=== PATIENT | male | born 1955 | race Caucasian/White ===

== ENCOUNTER 2023-11-17 09:25 | Outpatient (CLI) | payer BC, SELFPAY | END 2023-11-17 09:26 | disposition home or self-care (01) | LOC: AMB 11-21 23:08 | PROVIDERS: PCP Family Medicine; Visit Provider Family Medicine | DX: R07.89 Other chest pain (principal) | CPT/HCPCS: A0425; A0427 ==

== ENCOUNTER 2023-11-17 10:04 | Emergency (ER) | payer BC, SELFPAY ==
[2023-11-17] VITALS (81 sets, daily range): BP systolic 91–122; BP diastolic 66–94; PULSE 71–108; RESP 24; TEMP 36.2; O2SAT 91–95; BMI 30.5
--- NOTE | 2023-11-17 10:07 | CRLHL7_ITS ---
For Patients: As a result of the Century Cures Act, medical imaging exams and procedure reports are released immediately into your electronic medical record. You may view this report before your referring provider. If you have questions, please contact your health care provider. INDICATION: Chest pain. TECHNIQUE: Chest 1 views. COMPARISON: None. FINDINGS: Cardiovasculature and mediastinum: Heart size is normal. Unremarkable mediastinum. Lungs and pleural spaces: Lungs are clear. No sign of infiltrate or mass. No sign of pleural effusion. No pneumothorax. Bones and soft tissues: No significant findings. IMPRESSION: No acute or significant findings. Dictated by Fredis Cummings MD @ 11/17/2023 11:00:14 AM (Electronically Signed)
--- NOTE | 2023-11-17 10:09 | ED_ITS ---
HPI - General Adult General Chief complaint: Chest Pain Stated complaint: chest pain Time Seen by Provider: 11/17/23 10:06 History of Present Illness HPI narrative: Patient is a 68 year white male with hypertension, hypothyroidism, and asthma presents with 4 day history of increasing substernal chest pressure. Patient reports that he was nauseated today had some dry heaves. No pain in his neck or arms. He reports some substernal generalized chest pressure. He was brought in by EMS ambulance. He was given 4 baby aspirin, he is on oxygen. The patient describes some substernal chest pressure. He states it is worse with movement or deep breathing. He denies that it radiates through to his back. He has had no leg swelling edema. He has had no history of coronary artery disease. There is no family history of heart disease. No recent fever, chills, cough. Related Data Home Medications ?Medication ?Instructions ?Recorded ?Confirmed albuterol sulfate 90 mcg/actuation 2 puff inhalation QID PRN wheezing 11/17/23 11/17/23 aerosol inhaler fluoxetine 20 mg capsule 20 mg PO DAILY 11/17/23 11/17/23 fluticasone propionate 50 2 spray intranasal DAILY 11/17/23 11/17/23 mcg/actuation nasal spray,suspension levothyroxine 100 mcg tablet 100 mcg PO QAM 11/17/23 11/17/23 lisinopril 10 mg tablet 10 mg PO DAILY 11/17/23 11/17/23 Allergies Allergy/AdvReac Type Severity Reaction Status Date / Time iodine Allergy Unknown Verified 11/17/23 10:11 Review of Systems Status of ROS: Reports: 10 or more systems reviewed and unremarkable except as noted in History and below PFSH PFS Social History Smoking Status: Never smoker Do you use any of these nicotine containing products: None How often do you have a drink containing alcohol: never How often do you have six or more drinks on one occasion: Never AUDIT-C Alcohol total score: 0 Non-prescribed substance use: denies use Exam Narrative: Exam Narrative: Objective: Patient is slightly pale alert orient x3 HEENT is unremarkable Neck is supple Chest is clear no rales or wheezing Heart rhythm regular 2/6 systolic murmur occasional ectopic beat noted Abdomen benign soft nontender Extremities are no edema neurologic nonfocal Good peripheral perfusion noted, skin periphery warm and dry. Const: Vital Signs, click to edit/add: Vital Signs - 24 hr 11/17/23 10:06 11/17/23 10:06 11/17/23 10:16 Temperature 97.1 F L Pulse Rate Pulse Rate [Pulse Oximeter] 108 H Respiratory Rate 24 Blood Pressure Blood Pressure [Ri ght Upper Arm] 112/90 H Pulse Oximetry 93 94 95 Oxygen Delivery Me thod Room Air Nasal Cannula Oxygen Flow Rate 1 11/17/23 10:25 11/17/23 10:26 11/17/23 10:30 Temperature Pulse Rate 106 H 106 H 107 H Pulse Rate [Pulse Oximeter] Respiratory Rate Blood Pressure 108/89 Blood Pressure [Ri ght Upper Arm] Pulse Oximetry 95 94 93 Oxygen Delivery Me thod Nasal Cannula Nasal Cannula Nasal Cannula Oxygen Flow Rate 1 1 1 11/17/23 10:34 11/17/23 10:41 11/17/23 10:45 Temperature Pulse Rate 103 H 102 H 103 H Pulse Rate [Pulse Oximeter] Respiratory Rate Blood Pressure 99/69 95/78 Blood Pressure [Ri ght Upper Arm] Pulse Oximetry 93 92 91 Oxygen Delivery Me thod Nasal Cannula Nasal Cannula Nasal Cannula Oxygen Flow Rate 1 1 1 11/17/23 10:51 11/17/23 10:56 11/17/23 11:00 Temperature Pulse Rate 102 H 99 98 Pulse Rate [Pulse Oximeter] Respiratory Rate Blood Pressure 102/77 121/76 Blood Pressure [Ri ght Upper Arm] Pulse Oximetry 93 93 95 Oxygen Delivery Me thod Nasal Cannula Nasal Cannula Oxygen Flow Rate 1 1 11/17/23 11:01 11/17/23 11:06 11/17/23 11:11 Temperature Pulse Rate 98 96 96 Pulse Rate [Pulse Oximeter] Respiratory Rate Blood Pressure 102/82 103/82 103/88 Blood Pressure [Ri ght Upper Arm] Pulse Oximetry 94 94 94 Oxygen Delivery Me thod Nasal Cannula Nasal Cannula Nasal Cannula Oxygen Flow Rate 1 1 1 11/17/23 11:15 11/17/23 11:18 11/17/23 11:19 Temperature Pulse Rate 95 93 91 Pulse Rate [Pulse Oximeter] Respiratory Rate Blood Pressure 121/83 Blood Pressure [Ri ght Upper Arm] Pulse Oximetry 93 93 93 Oxygen Delivery Me thod Nasal Cannula Nasal Cannula Nasal Cannula Oxygen Flow Rate 1 1 1 11/17/23 11:21 11/17/23 11:26 11/17/23 11:30 Temperature Pulse Rate 92 88 87 Pulse Rate [Pulse Oximeter] Respiratory Rate Blood Pressure 100/84 108/86 Blood Pressure [Ri ght Upper Arm] Pulse Oximetry 94 94 95 Oxygen Delivery Me thod Nasal Cannula Nasal Cannula Nasal Cannula Oxygen Flow Rate 1 1 1 11/17/23 11:31 11/17/23 11:36 11/17/23 11:41 Temperature Pulse Rate 87 87 Pulse Rate [Pulse Oximeter] Respiratory Rate Blood Pressure 107/82 119/94 H 103/86 Blood Pressure [Ri ght Upper Arm] Pulse Oximetry 94 93 Oxygen Delivery Me thod Nasal Cannula Nasal Cannula Nasal Cannula Oxygen Flow Rate 1 1 1 11/17/23 11:45 11/17/23 11:46 11/17/23 11:51 Temperature Pulse Rate 88 86 87 Pulse Rate [Pulse Oximeter] Respiratory Rate Blood Pressure 109/87 109/88 Blood Pressure [Ri ght Upper Arm] Pulse Oximetry 93 94 93 Oxygen Delivery Me thod Nasal Cannula Nasal Cannula Nasal Cannula Oxygen Flow Rate 1 1 1 11/17/23 11:52 11/17/23 11:56 11/17/23 12:00 Temperature Pulse Rate 87 88 90 Pulse Rate [Pulse Oximeter] Respiratory Rate Blood Pressure 108/88 Blood Pressure [Ri ght Upper Arm] Pulse Oximetry 93 93 93 Oxygen Delivery Me thod Nasal Cannula Nasal Cannula Nasal Cannula Oxygen Flow Rate 1 1 1 11/17/23 12:01 11/17/23 12:06 11/17/23 12:12 Temperature Pulse Rate 87 83 81 Pulse Rate [Pulse Oximeter] Respiratory Rate Blood Pressure 99/88 105/83 107/83 Blood Pressure [Ri ght Upper Arm] Pulse Oximetry 93 93 94 Oxygen Delivery Me thod Nasal Cannula Nasal Cannula Nasal Cannula Oxygen Flow Rate 1 1 1 11/17/23 12:15 11/17/23 12:17 11/17/23 12:22 Temperature Pulse Rate 82 82 81 Pulse Rate [Pulse Oximeter] Respiratory Rate Blood Pressure 104/89 106/72 Blood Pressure [Ri ght Upper Arm] Pulse Oximetry 94 93 93 Oxygen Delivery Me thod Nasal Cannula Nasal Cannula Oxygen Flow Rate 1 1 11/17/23 12:26 11/17/23 12:30 11/17/23 12:32 Temperature Pulse Rate 81 82 82 Pulse Rate [Pulse Oximeter] Respiratory Rate Blood Pressure 101/80 91/66 Blood Pressure [Ri ght Upper Arm] Pulse Oximetry 92 93 93 Oxygen Delivery Me thod Nasal Cannula Nasal Cannula Nasal Cannula Oxygen Flow Rate 1 1 1 11/17/23 12:37 11/17/23 12:41 11/17/23 12:45 Temperature Pulse Rate 79 78 81 Pulse Rate [Pulse Oximeter] Respiratory Rate Blood Pressure 104/89 109/83 Blood Pressure [Ri ght Upper Arm] Pulse Oximetry 93 91 93 Oxygen Delivery Me thod Nasal Cannula Nasal Cannula Nasal Cannula Oxygen Flow Rate 1 1 1 11/17/23 12:46 11/17/23 12:52 11/17/23 12:56 Temperature Pulse Rate 80 78 79 Pulse Rate [Pulse Oximeter] Respiratory Rate Blood Pressure 118/86 115/82 121/87 Blood Pressure [Ri ght Upper Arm] Pulse Oximetry 93 94 93 Oxygen Delivery Me thod Nasal Cannula Nasal Cannula Nasal Cannula Oxygen Flow Rate 1 1 1 11/17/23 12:57 11/17/23 13:00 11/17/23 13:01 Temperature Pulse Rate 81 77 79 Pulse Rate [Pulse Oximeter] Respiratory Rate Blood Pressure 112/85 Blood Pressure [Ri ght Upper Arm] Pulse Oximetry 93 93 91 Oxygen Delivery Me thod Nasal Cannula Nasal Cannula Nasal Cannula Oxygen Flow Rate 1 1 1 11/17/23 13:06 11/17/23 13:07 11/17/23 13:12 Temperature Pulse Rate 83 81 77 Pulse Rate [Pulse Oximeter] Respiratory Rate Blood Pressure 99/84 114/81 Blood Pressure [Ri ght Upper Arm] Pulse Oximetry 92 94 94 Oxygen Delivery Me thod Nasal Cannula Nasal Cannula Nasal Cannula Oxygen Flow Rate 1 1 1 11/17/23 13:15 11/17/23 13:17 11/17/23 13:22 Temperature Pulse Rate 76 76 76 Pulse Rate [Pulse Oximeter] Respiratory Rate Blood Pressure 111/82 115/83 Blood Pressure [Ri ght Upper Arm] Pulse Oximetry 94 94 94 Oxygen Delivery Me thod Nasal Cannula Nasal Cannula Nasal Cannula Oxygen Flow Rate 1 1 11/17/23 13:27 11/17/23 13:30 11/17/23 13:31 Temperature Pulse Rate 77 73 76 Pulse Rate [Pulse Oximeter] Respiratory Rate Blood Pressure 107/74 104/90 H Blood Pressure [Ri ght Upper Arm] Pulse Oximetry 94 94 92 Oxygen Delivery Me thod Nasal Cannula Nasal Cannula Nasal Cannula Oxygen Flow Rate 1 1 11/17/23 13:36 11/17/23 13:42 11/17/23 13:45 Temperature Pulse Rate 77 73 75 Pulse Rate [Pulse Oximeter] Respiratory Rate Blood Pressure 113/78 112/79 Blood Pressure [Ri ght Upper Arm] Pulse Oximetry 93 94 93 Oxygen Delivery Me thod Nasal Cannula Nasal Cannula Nasal Cannula Oxygen Flow Rate 1 1 1 11/17/23 13:47 11/17/23 13:53 11/17/23 13:57 Temperature Pulse Rate 73 75 72 Pulse Rate [Pulse Oximeter] Respiratory Rate Blood Pressure 94/83 114/78 108/86 Blood Pressure [Ri ght Upper Arm] Pulse Oximetry 93 93 94 Oxygen Delivery Me thod Nasal Cannula Nasal Cannula Nasal Cannula Oxygen Flow Rate 1 1 1 11/17/23 14:00 11/17/23 14:01 11/17/23 14:07 Temperature Pulse Rate 76 77 76 Pulse Rate [Pulse Oximeter] Respiratory Rate Blood Pressure 117/77 109/80 Blood Pressure [Ri ght Upper Arm] Pulse Oximetry 93 93 94 Oxygen Delivery Me thod Nasal Cannula Nasal Cannula Nasal Cannula Oxygen Flow Rate 1 1 1 11/17/23 14:12 11/17/23 14:15 11/17/23 14:17 Temperature Pulse Rate 73 74 73 Pulse Rate [Pulse Oximeter] Respiratory Rate Blood Pressure 117/81 122/75 Blood Pressure [Ri ght Upper Arm] Pulse Oximetry 93 93 93 Oxygen Delivery Me thod Nasal Cannula Nasal Cannula Nasal Cannula Oxygen Flow Rate 1 1 1 11/17/23 14:30 11/17/23 14:32 11/17/23 14:45 Temperature Pulse Rate 74 75 71 Pulse Rate [Pulse Oximeter] Respiratory Rate Blood Pressure 107/83 Blood Pressure [Ri ght Upper Arm] Pulse Oximetry 93 93 93 Oxygen Delivery Me thod Nasal Cannula Nasal Cannula Nasal Cannula Oxygen Flow Rate 1 1 1 11/17/23 14:47 11/17/23 15:00 11/17/23 15:01 Temperature Pulse Rate 71 79 79 Pulse Rate [Pulse Oximeter] Respiratory Rate Blood Pressure 115/83 110/76 Blood Pressure [Ri ght Upper Arm] Pulse Oximetry 94 92 92 Oxygen Delivery Me thod Nasal Cannula Nasal Cannula Nasal Cannula Oxygen Flow Rate 1 1 1 11/17/23 15:15 11/17/23 15:16 11/17/23 15:17 Temperature Pulse Rate 81 79 78 Pulse Rate [Pulse Oximeter] Respiratory Rate Blood Pressure 94/78 Blood Pressure [Ri ght Upper Arm] Pulse Oximetry 92 92 91 Oxygen Delivery Me thod Nasal Cannula Nasal Cannula Nasal Cannula Oxygen Flow Rate 1 1 1 11/17/23 15:30 11/17/23 15:32 11/17/23 15:45 Temperature Pulse Rate 77 77 77 Pulse Rate [Pulse Oximeter] Respiratory Rate Blood Pressure 102/86 Blood Pressure [Ri ght Upper Arm] Pulse Oximetry 93 92 94 Oxygen Delivery Me thod Nasal Cannula Nasal Cannula Nasal Cannula Oxygen Flow Rate 1 1 1 11/17/23 15:47 Temperature Pulse Rate 74 Pulse Rate [Pulse Oximeter] Respiratory Rate Blood Pressure 116/93 H Blood Pressure [Ri ght Upper Arm] Pulse Oximetry 95 Oxygen Delivery Me thod Nasal Cannula Oxygen Flow Rate 1 Course Vital Signs Vital signs: Initial Vital Signs Temperature 97.1 F L 11/17/23 10:06 Temperature Source Temporal Artery Scan 11/17/23 10:06 Pulse Rate 108 H 11/17/23 10:06 Respiratory Rate 24 11/17/23 10:06 Blood Pressure 112/90 H 11/17/23 10:06 Blood Pressure Mean 97 11/17/23 10:06 Blood Pressure Position Supine 11/17/23 10:06 Pulse Oximetry 93 11/17/23 10:06 Oxygen Delivery Method Room Air 11/17/23 10:06 Vital Signs Temperature 97.1 F L 11/17/23 10:06 Pulse Rate 108 H 11/17/23 10:06 Respiratory Rate 24 11/17/23 10:06 Blood Pressure 112/90 H 11/17/23 10:06 Pulse Oximetry 93 11/17/23 10:06 Oxygen Delivery Method Room Air 11/17/23 10:06 Temperature 97.1 F L 11/17/23 10:06 Pulse Rate 74 11/17/23 15:47 Respiratory Rate 24 11/17/23 10:06 Blood Pressure 116/93 H 11/17/23 15:47 Pulse Oximetry 95 11/17/23 15:47 Oxygen Delivery Method Nasal Cannula 11/17/23 15:47 Oxygen Flow Rate 1 11/17/23 15:47 Medications Administered Medications: Discontinued Medications Generic Name Dose Route Start Last Admin Trade Name Ervin PRN Reason Stop Dose Admin Acetaminophen 1,000 mg 11/17/23 15:18 11/17/23 15:22 Acetaminophen 500 Mg Tablet PO 11/17/23 15:19 1,000 mg ONCE ONE Administration Heparin Sodium (Porcine) 4,000 unit 11/17/23 10:18 11/17/23 10:39 Heparin 5,000 Unit/0.5 Ml Inj IVP 11/17/23 10:19 4,000 unit ONCE ONE Administration Sodium Chloride 500 mls @ 500 mls/hr 11/17/23 10:06 11/17/23 11:25 0.9 % Sodium Chloride 500 Ml IV 11/17/23 11:05 Infused .Q1H ONE Infusion Heparin Sodium/Dextrose 25,000 unit in 500 mls @ 0 mls/hr 11/17/23 10:30 11/17/23 10:49 Heparin IV 1,000 unit/hr .Q0M HARMEET 20 mls/hr Administration Protocol Per Protocol Nitroglycerin/Dextrose 25,000 mcg in 250 mls @ 3 mls/hr 11/17/23 10:19 11/17/23 10:48 Nitroglycerin/Dextrose IVPB 5 mcg/min .TITRATE PRN 3 mls/hr Administration Protocol 5 MCG/MIN Sodium Chloride 500 mls @ 500 mls/hr 11/17/23 10:44 11/17/23 12:47 0.9 % Sodium Chloride 500 Ml IV 11/17/23 11:43 Infused .Q1H ONE Infusion Morphine Sulfate 2 mg 11/17/23 10:30 11/17/23 10:55 Morphine 2 Mg/Ml Inj IVP 11/17/23 10:31 2 mg ONCE ONE Administration Nitroglycerin 0.4 mg 11/17/23 10:06 11/17/23 10:20 Nitroglycerin 0.4 Mg Tab.Subl SUBLINGUAL 11/17/23 10:07 0.4 mg ONCE ONE Administration Medical Decision Making [facility] Narrative Medical decision making narrative: [age] year white male with 4 day history of increasing chest pressure. Seems to be somewhat pleuritic in nature. I think could be appropriate to get acute coronary syndrome rule out labs, troponin, EKG, will give aspirin which was done in the ambulance, will give sublingual nitro. Patient certainly could have a history of unstable angina. And crescendo angina. Will check the above- mentioned studies. I think also CT scan because it is pleuritic and worse with movement would be appropriate to rule out PE or other intrapulmonary pathology. Patient may need transfer to tertiary care. Will see how his labs returned an EKG and troponin. Addendum 10:21 a.m. the patient has EKG that shows T-wave abnormality inferolaterally and a little bit of T-wave inversion anteriorly in V2 and V3 as well. The patient be started on heparin drip, nitroglycerin drip. Aspirin has been given. I think at this point will get his troponin, trying get a CT scan of his chest for completeness, will make transfer arrangements for [facility]. Patient was in agreement the plan. I think the patient gives a good story for unstable angina. He was seen in the clinic earlier in the week for a chest tightness with activity and it has gotten worse the last few days. Addendum 10:40 a.m. the patient's troponin is positive on point of care. IV nitro and heparin started. He has been given aspirin. His pain is a little bit better. Will continue to titrate his nitroglycerin to blood pressure and pain. Will discuss with Cardiology regarding transfer for assessment and possibly early catheterization thanks. Because of the patient's positive troponin and lack of ST elevation likely a an NSTEMI Addendum 11:15 a.m.: [facility] eyes in a 2-4 hour waiting. [employer] felt that it was reasonable to transfer him at that time, Dr. Ignacio lechuga will except for the hospitalist team. Transfer we made when available bed status at [facility]. The patient's pain is better Addendum 3:45 p.m. patient remains stable, but he it has been incredibly long wait for an ambulance, mutual aid has been summoned has been multiple 911 calls. Sound like he has next to be transported. Lab Data Labs: Lab Results 11/17/23 11/17/23 Range/Units 10:07 10:20 WBC 15.50 H (4.50-11.00) K/uL RBC 5.39 (4.30-5.90) m/uL Hgb 15.7 (13.5-17.5) gm/dL Hct 48.0 (37.0-53.0) % MCV 89 (80-100) fL MCH 29 (26-34) pg MCHC 33 (32-36) gm/dL RDW Coeff of Lele 13.3 (11.5-15.5) % Plt Count 206 (140-440) K/uL Neut % (Auto) 82.2 H (42.0-72.0) % Lymph % (Auto) 11.4 L (20-44) % [place] % (Auto) 4.7 (0.0-11.0) % Eos % (Auto) 1.2 (0.0-7.0) % Baso % (Auto) 0.3 (0.0-3.0) % Neut # (Auto) 12.70 H (1.7-7.0) K/uL Lymph # (Auto) 1.80 (0.90-2.90) K/uL [place] # (Auto) 0.70 (0.00-0.90) K/UL Eos # (Auto) 0.20 (0.00-0.50) K/uL Baso # (Auto) 0.00 (0.00-0.30) K/uL Abs Immat Gran (auto) 0.00 (0.00-0.30) K/uL Imm/Tot Granulo (auto) 0.2 % APTT 35 H (23-33) Seconds D-Dimer Quant (PE/DVT) > 20.00 H (0.00-0.50) ug/ml Sodium 138 (135-149) mmol/L Potassium 4.4 (3.6-5.1) mmol/L Chloride 106 (96-114) mmol/L Carbon Dioxide 20 (20-32) mmol/L Anion Gap 12 (7-15) mEq/L BUN 19 (7-30) mg/dL Creatinine 1.6 H (0.5-1.5) mg/dL Estimated Creat Clear 49.85 Estimated GFR 47 ml/min Glucose 168 H (60-115) mg/dL Lactate 3.6 H (0.5-1.9) mmol/L Calcium 9.7 (8.4-10.6) mg/dL Total Bilirubin 1.1 (0.1-1.5) mg/dL Direct Bilirubin 0.3 (0.0-0.5) mg/dL AST 25 (12-35) U/L ALT 15 (4-50) U/L Alkaline Phosphatase 90 (40-150) U/L Troponin I 0.20 H* (0.01-0.04) ng/mL C-Reactive Protein 2.4 H (0.5-1.0) mg/dL NT-Pro-B Natriuret Pep 6840 pg/mL Total Protein 7.3 (6.0-8.3) g/dL Albumin 4.7 (3.3-5.0) g/dL SARS-CoV-2 (PCR) Negative SARS-CoV-2 (Negative) Influenza Type A (PCR) Negative PCR FLU A (Negative) Influenza Type B (PCR) Negative PCR FLU B (Negative) RSV (PCR) Negative PCR RSV (Negative) POC Troponin I 0.17 H (0.01-0.04) ng/ml Discharge Plan Discharge Clinical Impression: Chest pain, Angina pectoris, unstable Patient Disposition: [facility] Nav Prescriptions: No Action levothyroxine 100 mcg tablet 100 mcg PO QAM lisinopril 10 mg tablet 10 mg PO DAILY albuterol sulfate 90 mcg/actuation HFA aerosol inhaler 2 puff inhalation QID PRN (Reason: wheezing) fluoxetine 20 mg capsule 20 mg PO DAILY fluticasone propionate 50 mcg/actuation spray,suspension 2 spray INTRANASAL DAILY Stand Alone Forms: My[employer] Info Instructions
[2023-11-17] MEDS: MORPHINE 2 MG/ML inj IVP ×2 (10:20→10:55)
[2023-11-17] MEDS: NITROGLYCERIN 0.4 MG TAB.SUBL SUBLINGUAL (10:20)
[2023-11-17 10:26] LABS: Lactate* 3.6 mmol/L (0.5-1.9)
[2023-11-17] MEDS: 0.9 % SODIUM CHLORIDE 500 ML 500 ML IV ×2 (10:27→11:35)
[2023-11-17 10:30] LABS: Basophils Percent Auto 0.3 % (0.0-3.0); Eosinophils Percent Auto 1.2 % (0.0-7.0); Hemoglobin* 15.7 gm/dL (13.5-17.5); Immature Granulocytes Pct Auto 0.2 %; Lymphocytes Percent Auto 11.4 % (20-44); Mean Corpuscular HGB Conc 33 gm/dL (32-36); Mean Corpuscular Hemoglobin 29 pg (26-34); Mean Corpuscular Volume 89 fL (80-100); Monocytes Percent Auto 4.7 % (0.0-11.0); Neutrophils Percent Auto 82.2 % (42.0-72.0); Platelet Count* 206 K/uL (140-440); RDW Coefficient of Variation % 13.3 % (11.5-15.5); Red Blood Count 5.39 m/uL (4.30-5.90)
[2023-11-17 10:32] LABS: Slide Review Reflex No
[2023-11-17] MEDS: HEPARIN 5,000 UNIT/0.5 ML INJ 4000 UNIT IVP (10:39)
[2023-11-17 10:42] LABS: Chloride* 106 mmol/L (96-114)
[2023-11-17 10:43] LABS: Albumin* 4.7 g/dL (3.3-5.0); Potassium* 4.4 mmol/L (3.6-5.1); Sodium* 138 mmol/L (135-149)
[2023-11-17 10:45] LABS: Creatinine* 1.6 mg/dL (0.5-1.5); Est. Creatinine Clearance* 49.85; Estimated Glomerular Filt Rate 47 ml/min; Partial Thromboplastin Time* 35 Seconds (23-33)
[2023-11-17 10:46] LABS: Alanine Aminotransferase* 15 U/L (4-50); Alkaline Phosphatase* 90 U/L (40-150); Anion Gap 12 mEq/L (7-15); Aspartate Amino Transferase* 25 U/L (12-35); Bilirubin Direct* 0.3 mg/dL (0.0-0.5); Bilirubin Total* 1.1 mg/dL (0.1-1.5); Blood Urea Nitrogen* 19 mg/dL (7-30); Calcium* 9.7 mg/dL (8.4-10.6); Carbon Dioxide* 20 mmol/L (20-32); Glucose* 168 mg/dL (60-115); Total Protein* 7.3 g/dL (6.0-8.3)
[2023-11-17] MEDS: NITROGLYCERIN/DEXTROSE 25,000 MCG/250 ML BOTTLE 3 MCG IVPB (10:48)
[2023-11-17 10:49] LABS: C Reactive Protein* 2.4 mg/dL (0.5-1.0)
[2023-11-17] MEDS: HEPARIN 25,000 UNIT/500 ML BAG 20 UNIT IV (10:49)
[2023-11-17 10:57] LABS: NT Pro B Type NatriureticPept* 6840 pg/mL
[2023-11-17 11:07] LABS: PCR FLU A Negative PCR FLU A (Negative); PCR FLU B Negative PCR FLU B (Negative); PCR RSV Negative PCR RSV (Negative); SARS PCR* Negative SARS-CoV-2 (Negative)
[2023-11-17 11:23] LABS: Troponin, Point-of-Care* 0.17 ng/ml (0.01-0.04)
[2023-11-17 11:42] LABS: D Dimer Quantitative* > 20.00 ug/ml (0.00-0.50)
[2023-11-17] MEDS: ACETAMINOPHEN 500 MG TABLET 1000 MG PO (15:22)
== END 2023-11-17 16:30 | disposition short-term general hospital (02) ==
PROVIDERS: Emergency Provider Family Medicine; PCP Family Medicine
DX: R07.9 Chest pain, unspecified (principal); I20.9 Angina pectoris, unspecified
CPT/HCPCS: 36415; 71045; 80048; 80076; 83605; 83880; 84484; 85025; 85379; 85730; 86140; 87631; 93005; 94761; 96365; 96375; 99285; 99291; A9270; J1644; J2270; J7030

== ENCOUNTER 2023-11-17 16:15 | Outpatient (CLI) | payer BC, SELFPAY | END 2023-11-17 16:16 | disposition home or self-care (01) | LOC: AMB 11-22 22:59 | PROVIDERS: PCP Family Medicine; Visit Provider Emergency Medicine Emergency Medical Services | DX: I20.9 Angina pectoris, unspecified (principal) | CPT/HCPCS: A0425; A0427 ==

== ENCOUNTER 2023-11-22 18:56 | Emergency (ER) | payer BC, SELFPAY ==
[2023-11-22 19:01] VITALS: BP 135/86; PULSE 79; RESP 18; TEMP 36.1; O2SAT 94; BMI 30.5
== END 2023-11-22 19:57 | disposition left against medical advice (07) ==
PROVIDERS: Emergency Provider Emergency Medicine Emergency Medical Services; PCP Family Medicine
DX: Z53.21 Procedure and treatment not carried out due to patient leaving prior to being seen by health care provider (principal)

== ENCOUNTER 2023-12-24 18:54 | Emergency (ER) | payer BC, SELFPAY ==
[2023-12-24] VITALS (7 sets, daily range): BP systolic 119–127; BP diastolic 70–96; PULSE 59–68; RESP 18–20; TEMP 36.8; O2SAT 92–99; BMI 29.8
--- NOTE | 2023-12-24 19:06 | CRLHL7_ITS ---
For Patients: As a result of the Century Cures Act, medical imaging exams and procedure reports are released immediately into your electronic medical record. You may view this report before your referring provider. If you have questions, please contact your health care provider. INDICATION: Recent PE, shortness of breath, cough. TECHNIQUE: CT chest PE was acquired with 95 cc Isovue 370 IV contrast. COMPARISON: Chest CT 11/18/2023. FINDINGS: Heart and vasculature: Contrast opacification of the pulmonary arterial tree is adequate.Significant interval decrease in the pulmonary emboli/clot burden when compared to the prior CT. Small residual saddle pulmonary embolism at the bifurcation of the right middle and lower lobar pulmonary arteries. No other pulmonary emboli identified. No CT evidence for right heart strain. Cardiomegaly. Thoracic aorta and pulmonary artery are normal in caliber. Lungs and pleura: Mild bilateral lower lobe passive atelectasis. No consolidation suspicious nodule, pleural effusion, pneumothorax. Lymph nodes/mediastinum: No mediastinal, hilar, or axillary adenopathy. Large hiatal hernia containing proximally a third of the stomach. Chest wall: No masses. Upper abdomen: Punctate nonobstructing right nephrolith. Bones: Unremarkable for age. IMPRESSION: 1. Significant interval decrease in the pulmonary emboli/clot burden when compared to the prior CT. Small residual saddle pulmonary embolism at the bifurcation of the right middle and lower lobar pulmonary arteries. No other pulmonary embolism identified. No evidence for right heart strain. 2. No other acute findings within the chest. 3. Large hiatal hernia. Findings discussed with Dr. Villafuerte at 7:03 PM PST on 12/24/2023. Please note that all CT scans at this facility use dose modulation, iterative reconstruction, and/or weight-based dosing when appropriate to reduce radiation dose to as low as reasonably achievable. Dictated by Bob Rodriguez MD @ 12/24/2023 9:01:09 PM (Electronically Signed)
[2023-12-24] MEDS: HYDROCORTISONE SOD SUCCINATE 50 MG/ML inj 200 MG IVP (19:15)
[2023-12-24] MEDS: diphenhydrAMINE 50 MG/ML inj IVP (19:15)
[2023-12-24] MEDS: 0.9 % SODIUM CHLORIDE 500 ML 500 ML IV (19:15)
[2023-12-24 19:27] LABS: HCO3 VBG 23 mmol/L (21-28); PCO2 VBG 32 mmHG (40-50); pH VBG 7.474 (7.32-7.43)
[2023-12-24 19:30] LABS: Troponin, Point-of-Care* 0.01 ng/ml (0.01-0.04)
[2023-12-24 19:35] LABS: Basophils Absolute Auto 0.04 K/uL (0.00-0.30); Basophils Percent Auto 0.6 % (0.0-3.0); Eosinophils Absolute Auto 0.46 K/uL (0.00-0.50); Eosinophils Percent Auto 6.8 % (0.0-7.0); Hemoglobin* 14.8 gm/dL (13.5-17.5); Immature Granulocytes Abs Auto 0.03 K/uL (0.00-0.30); Immature Granulocytes Pct Auto 0.4 %; Lymphocytes Percent Auto 34.2 % (20-44); Mean Corpuscular HGB Conc 33 gm/dL (32-36); Mean Corpuscular Hemoglobin 29 pg (26-34); Mean Corpuscular Volume 89 fL (80-100); Monocytes Percent Auto 9.1 % (0.0-11.0); Neutrophils Absolute Auto 3.28 K/uL (1.7-7.0); Neutrophils Percent Auto 48.9 % (42.0-72.0); Platelet Count* 286 K/uL (140-440); RDW Coefficient of Variation % 13.1 % (11.5-15.5); Red Blood Count 5.08 m/uL (4.30-5.90); White Blood Count* 6.72 K/uL (4.50-11.00)
[2023-12-24 19:36] LABS: Slide Review Reflex No
--- NOTE | 2023-12-24 19:40 | ED.GENADULT ---
HPI - General Adult General Date Seen: 12/24/23 Chief complaint: Shortness of Breath/Dyspnea Stated complaint: difficulty breathing, history of PE Time Seen by Provider: 12/24/23 19:00 Source: patient, RN notes reviewed and old records reviewed Mode of arrival: ambulatory Limitations: no limitations History of Present Illness HPI narrative: Patient is a 68-year-old male who was seen here mid November, thought to had a non-STEMI secondary to chest discomfort shortness breath and elevated troponin. He was transferred to [facility], did have an elevated D-dimer and underwent CT scan which showed extensive bilateral PE. He tells me that he thinks they did ultrasounds of his legs and there was maybe some clot in 1 of them. He was started on Eliquis which he has been taking responsibly since then. He does note that he has a lifelong history of asthma and uses an albuterol inhaler. He asked at the time of discharge how he should differentiate between shortness of breath being related to an asthma exacerbation versus possibly complication from his PE. He says they told him to try his inhaler a couple of times but if not improving he should come in. He says starting earlier today he has been feeling more short of breath, it feels like asthma to him but his inhaler did not help x2. He developed a cough this afternoon. He has not had a fever. He denies chest pain, pleuritic or otherwise. He has not noted unusual swelling in his legs. This was his 1st incidence of DVT or PE. He says they also did an angiogram while he was at the hospital and this looked normal. Related Data Home Medications ?Medication ?Instructions ?Recorded ?Confirmed albuterol sulfate 90 mcg/actuation 2 puff inhalation QID PRN wheezing 11/17/23 12/24/23 aerosol inhaler fluoxetine 20 mg capsule 20 mg PO DAILY 11/17/23 12/24/23 fluticasone propionate 50 2 spray intranasal DAILY 11/17/23 12/24/23 mcg/actuation nasal spray,suspension levothyroxine 100 mcg tablet 100 mcg PO QAM 11/17/23 12/24/23 lisinopril 10 mg tablet 10 mg PO DAILY 11/17/23 12/24/23 apixaban 5 mg tablet (Eliquis) mg PO 12/24/23 12/24/23 Allergies Allergy/AdvReac Type Severity Reaction Status Date / Time iodine Allergy Unknown Verified 12/24/23 20:44 Review of Systems Status of ROS: Reports: 10 or more systems reviewed and unremarkable except as noted in History and below [facility] Medical History (Updated 12/24/23 @ 21:19 by Rebecca Villafuerte MD) Subclinical hypothyroidism ?E03.8 - Other specified hypothyroidism (ICD-10) Right ureteral stone ?N20.1 - Calculus of ureter (ICD-10) Horseshoe tear of retina ?H33.319 - Horseshoe tear of retina without detachment, unspecified eye (ICD-10) History of pulmonary embolus (PE) ?Z86.711 - Personal history of pulmonary embolism (ICD-10) Surgical History (Updated 12/24/23 @ 19:44 by Neri Chirinos RN) History of cystoscopy ?Z98.890 - Other specified postprocedural states (ICD-10) History of wisdom tooth extraction ?K08.409 - Partial loss of teeth, unspecified cause, unspecified class (ICD-10) History of arthroscopy of left knee ?Z98.890 - Other specified postprocedural states (ICD-10) History of anal fistulotomy ?Z98.890 - Other specified postprocedural states (ICD-10) ?Z87.19 - Personal history of other diseases of the digestive system (ICD-10) Social History Smoking Status: Never smoker Do you use any of these nicotine containing products: None How often do you have a drink containing alcohol: never How often do you have six or more drinks on one occasion: Never AUDIT-C Alcohol total score: 0 Non-prescribed substance use: denies use Exam Narrative: Exam Narrative: Vital signs as noted above. In general, an alert, well-appearing patient. Head: Normocephalic, atraumatic. Eyes: Pupils are equal reactive. Extraocular movements are full. Conjunctivae are normal. ENT: Mucous membranes are moist. Throat is normal. Neck: Supple without lymphadenopathy. Heart: Regular rate and rhythm. No murmur or rub. Lungs: Clear bilaterally. No increased work of breathing, crackles or wheezes. Abdomen: Soft and nontender. No organomegaly. Extremities: Well perfused. No edema. No calf tenderness. Pulses intact. Neurologic: Patient is alert and oriented to person and place. Speech is fluent. Face is symmetric. Moves all extremities equally. Affect: Normal. Skin: Warm and dry. Well perfused. Const: Vital Signs, click to edit/add: Vital Signs - 24 hr 12/24/23 19:01 12/24/23 19:15 12/24/23 19:36 Temperature 98.2 F Pulse Rate 59 L Pulse Rate [Pulse Oximeter] 62 Respiratory Rate 18 20 Blood Pressure 123/96 H Blood Pressure [Ri ght Upper Arm] 127/72 Pulse Oximetry 97 99 92 Oxygen Delivery Me thod Room Air 12/24/23 20:02 12/24/23 21:01 Temperature Pulse Rate 64 60 Pulse Rate [Pulse Oximeter] Respiratory Rate 20 20 Blood Pressure 121/81 119/90 H Blood Pressure [Ri ght Upper Arm] Pulse Oximetry 94 95 Oxygen Delivery Me thod Course Course ED Course: On arrival, patient was maintained on the monitor and oximetry. He had an EKG which showed a sinus rhythm, ventricular rate of 62. No acute ST segment changes. He has Q-waves inferolaterally, these were present on prior EKG in the inferior leads but the lateral leads are new. Point of care troponin however is 0.01. Diagnostic considerations would include asthma exacerbation, pulmonary infections such as pneumonia or viral infection such as COVID or other, recurrent PE, congestive heart failure, less likely acute coronary syndrome given very recent negative angiogram. Plan will be to do a CT of the chest but will pre treat with hydrocortisone and Benadryl given allergy to iodine, he does note that he tolerated CT at [place] without difficulty. Labs are reassuring. His white blood cell count is normal, hemoglobin is 14.8. Metabolic panel unremarkable. Venous gas shows mild respiratory alkalosis with a pCO2 of 32, PO2 elevated at 64 and bicarb is normal. Suspect there may be a component of hyperventilation earlier. He is not tachycardic or tachypneic here. CRP is less than 0.5, BNP is 53 and COVID is negative. CT scan was discussed with the radiologist, there is a little bit of residual clot but markedly improved relative to scan from a month ago. There is no evidence of right heart strain on today's scan and aside from small residual clot at the bifurcation of the right middle and lower lobes, everything else looks well perfused. No significant pulmonary infarction, pneumonia, congestive heart failure. Formal read as follows:FINDINGS: Heart and vasculature: Contrast opacification of the pulmonary arterial tree is adequate.Significant interval decrease in the pulmonary emboli/clot burden when compared to the prior CT. Small residual saddle pulmonary embolism at the bifurcation of the right middle and lower lobar pulmonary arteries. No other pulmonary emboli identified. No CT evidence for right heart strain. Cardiomegaly. Thoracic aorta and pulmonary artery are normal in caliber. Lungs and pleura: Mild bilateral lower lobe passive atelectasis. No consolidation suspicious nodule, pleural effusion, pneumothorax. Lymph nodes/mediastinum: No mediastinal, hilar, or axillary adenopathy. Large hiatal hernia containing proximally a third of the stomach. Chest wall: No masses. Upper abdomen: Punctate nonobstructing right nephrolith. Bones: Unremarkable for age. IMPRESSION: 1. Significant interval decrease in the pulmonary emboli/clot burden when compared to the prior CT. Small residual saddle pulmonary embolism at the bifurcation of the right middle and lower lobar pulmonary arteries. No other pulmonary embolism identified. No evidence for right heart strain. 2. No other acute findings within the chest. 3. Large hiatal hernia. I have discussed all this with the patient. He says he feels like he is breathing much easier now than he was earlier. There may be just some bronchospasm going on here related to either a viral illness or just more susceptibility to asthma given recent pulmonary insult. I am going to prescribe some prednisone. I think it is reasonable to let him go home, advised that if he is not improving over the next day or 2 he should see his primary doctor, return to the ER at any time for acute worsening or severe symptoms. Vital Signs Vital signs: Initial Vital Signs Respiratory Effort Normal, Spontaneous, Non-Labored 12/24/23 18:59 Respiratory Depth Normal 12/24/23 18:59 Respiratory Pattern Normal 12/24/23 18:59 Vital Signs Temperature 98.2 F 12/24/23 19:01 Pulse Rate 62 12/24/23 19:01 Respiratory Rate 18 12/24/23 19:01 Blood Pressure 127/72 12/24/23 19:01 Pulse Oximetry 97 12/24/23 19:01 Oxygen Delivery Method Room Air 12/24/23 19:01 Temperature 98.2 F 12/24/23 19:01 Pulse Rate 60 12/24/23 21:01 Respiratory Rate 20 12/24/23 21:01 Blood Pressure 119/90 H 12/24/23 21:01 Pulse Oximetry 95 12/24/23 21:01 Oxygen Delivery Method Room Air 12/24/23 19:01 Medications Administered Medications: Discontinued Medications Generic Name Dose Route Start Last Admin Trade Name Ervin PRN Reason Stop Dose Admin Diphenhydramine HCl 50 mg 12/24/23 19:06 12/24/23 19:15 Diphenhydramine 50 Mg/Ml Inj IVP 12/24/23 19:07 50 mg ONCE ONE Administration Hydrocortisone Sodium Succinate 200 mg 12/24/23 19:06 12/24/23 19:15 Hydrocortisone Sod Succinate 50 Mg/Ml Inj IVP 12/24/23 19:07 200 mg ONCE ONE Administration Sodium Chloride 500 mls @ 500 mls/hr 12/24/23 19:06 12/24/23 19:51 0.9 % Sodium Chloride 500 Ml IV 12/24/23 20:05 Infused .Q1H ONE Infusion Medical Decision Making Lab Data Labs: Lab Results 12/24/23 12/24/23 12/24/23 Range/Units 19:07 19:18 19:18 WBC 6.72 (4.50-11.00) K/uL RBC 5.08 (4.30-5.90) m/uL Hgb 14.8 (13.5-17.5) gm/dL Hct 45.0 (37.0-53.0) % MCV 89 (80-100) fL MCH 29 (26-34) pg MCHC 33 (32-36) gm/dL RDW Coeff of Lele 13.1 (11.5-15.5) % Plt Count 286 (140-440) K/uL Neut % (Auto) 48.9 (42.0-72.0) % Lymph % (Auto) 34.2 (20-44) % [place] % (Auto) 9.1 (0.0-11.0) % Eos % (Auto) 6.8 (0.0-7.0) % Baso % (Auto) 0.6 (0.0-3.0) % Neut # (Auto) 3.28 (1.7-7.0) K/uL Lymph # (Auto) 2.30 (0.90-2.90) K/uL [place] # (Auto) 0.60 (0.00-0.90) K/UL Eos # (Auto) 0.46 (0.00-0.50) K/uL Baso # (Auto) 0.04 (0.00-0.30) K/uL Abs Immat Gran (auto) 0.03 (0.00-0.30) K/uL Imm/Tot Granulo (auto) 0.4 % VBG pH 7.474 H (7.32-7.43) VBG pCO2 32 L (40-50) mmHG VBG pO2 64.0 H (25-47) mmHG VBG HCO3 23 (21-28) mmol/L Sodium 136 (135-149) mmol/L Potassium 4.1 (3.6-5.1) mmol/L Chloride 107 (96-114) mmol/L Carbon Dioxide 21 (20-32) mmol/L Anion Gap 8 (7-15) mEq/L BUN 15 (7-30) mg/dL Creatinine 1.0 (0.5-1.5) mg/dL Estimated Creat Clear 79.76 Estimated GFR 83 ml/min Glucose 101 (60-115) mg/dL Calcium 9.6 (8.4-10.6) mg/dL C-Reactive Protein < 0.5 L (0.5-1.0) mg/dL NT-Pro-B Natriuret Pep 53 Cancelled pg/mL SARS-CoV-2 (PCR) Negative SARS-CoV-2 (Negative) POC Troponin I 0.01 (0.01-0.04) ng/ml Discharge Plan Discharge Clinical Impression: Shortness of breath, Asthma, History of pulmonary embolism Patient Disposition: Home, Self-Care Condition: Improved Instructions: Shortness of Breath (ED) Additional Instructions: Continue using your inhaler, prednisone as prescribed. Your CT scan does not show any evidence of new significant clot, pneumonia, abnormal fluid collections or other concerning findings. Your labs are reassuring as well. If you have worsening shortness of breath new symptoms such as fever, significant chest pain or other worrisome symptoms, return at any time to the emergency department. I would recommend that you follow-up with your clinic if you are not improving over the next day or 2. Prescriptions: No Action Eliquis 5 mg tablet PO levothyroxine 100 mcg tablet 100 mcg PO QAM lisinopril 10 mg tablet 10 mg PO DAILY albuterol sulfate 90 mcg/actuation HFA aerosol inhaler 2 puff inhalation QID PRN (Reason: wheezing) fluoxetine 20 mg capsule 20 mg PO DAILY fluticasone propionate 50 mcg/actuation spray,suspension 2 spray INTRANASAL DAILY Follow Up/Referrals: Nuzhat Alvarado DO [Primary Care Provider] - Stand Alone Forms: [facility] Info Instructions
[2023-12-24 19:46] LABS: Chloride* 107 mmol/L (96-114)
[2023-12-24 19:47] LABS: Potassium* 4.1 mmol/L (3.6-5.1); Sodium* 136 mmol/L (135-149)
[2023-12-24 19:49] LABS: Est. Creatinine Clearance* 79.76; Estimated Glomerular Filt Rate 83 ml/min
[2023-12-24 19:50] LABS: Anion Gap 8 mEq/L (7-15); Blood Urea Nitrogen* 15 mg/dL (7-30); Calcium* 9.6 mg/dL (8.4-10.6); Carbon Dioxide* 21 mmol/L (20-32); Glucose* 101 mg/dL (60-115)
[2023-12-24 19:56] LABS: C Reactive Protein* < 0.5 mg/dL (0.5-1.0)
[2023-12-24 20:00] LABS: NT Pro B Type NatriureticPept* 53 pg/mL
[2023-12-24 20:02] LABS: SARS PCR* Negative SARS-CoV-2 (Negative)
== END 2023-12-24 21:22 | disposition home or self-care (01) ==
PROVIDERS: Emergency Provider Emergency Medicine; PCP Family Medicine
DX: R06.02 Shortness of breath (principal); J45.909 Unspecified asthma, uncomplicated; Z86.711 Personal history of pulmonary embolism
CPT/HCPCS: 36415; 71275; 80048; 82803; 83880; 84484; 85025; 86140; 87635; 93005; 94761; 96374; 99284; 99285; J1200; J1720; J7030; Q9967